=== PATIENT | female | born 1975 | race Two or more races ===

== ENCOUNTER → 2017-12-04 | Outpatient (CLI) | payer OTHER | END | disposition home or self-care (01) | LOC: SURG 14:11 | PROVIDERS: ATTEND Anesthesiology Pain Medicine | DX: M51.37 Other intervertebral disc degeneration, lumbosacral region (principal); Z90.49 Acquired absence of other specified parts of digestive tract | CPT/HCPCS: 99214 ==

== ENCOUNTER → 2018-03-05 | Outpatient (CLI) | payer OTHER ==
[~2018-03-05] MED LIST: ALBUTEROL SULFATE 2.5 MG/3 ML NEBU. NEB PRN; ATROPINE 0.5 MG/5 ML DISP.SYRIN. IV PRN; ATROPINE 0.5 MG/5 ML DISP.SYRIN. ONE; BUPIVACAINE MPF 0.25% 10 ML VIAL. ONE; CETI10TA22 PO; EPINEPHrine SYRINGE 1 MG/10 ML SYRINGE ONE; ESCITALOPRAM OX20 MG PO; FLUMAZENIL 0.5 MG/5 ML VIAL. IV ONE; GLUCAGON,HUMAN RECOMBINANT 1 MG KIT. ONE; IV RINGERS SOLUTION,LACTATED 1,000 ML IV ONE; IV RINGERS SOLUTION,LACTATED 1,000 ML IV SCH; LEVO125T5 PO; LIDOCAINE 1% PF 30 ML VIAL. ONE; MIDAZOLAM HCL PF 2 MG/2 ML VIAL. IV ONE; MIDAZOLAM HCL PF 2 MG/2 ML VIAL. ONE; MULT1TAB52 PO; NALOXONE 0.4 MG/ML VIAL. IV PRN; NALOXONE 0.4 MG/ML VIAL. ONE; ONDANSETRON PF 4 MG/2 ML VIAL. IV PRN; PROCHLORPERAZINE 10 MG/2 ML VIAL. IV PRN; TOPI100T42 PO; diphenhydrAMINE 50 MG/ML VIAL IV PRN; diphenhydrAMINE 50 MG/ML VIAL ONE; methylPREDNISolone ACETATE 40 MG/ML VIAL. ONE; oxyCODONE/APAP 5/325 1 TAB TABLET PO PRN
[2018-03-05 09:25] VITALS: BP 125/74
== END | disposition home or self-care (01) ==
LOC: SURG 07:24
PROVIDERS: ATTEND Anesthesiology Pain Medicine
DX: M47.816 Spondylosis without myelopathy or radiculopathy, lumbar region (principal); Z90.49 Acquired absence of other specified parts of digestive tract; Z90.710 Acquired absence of both cervix and uterus
CPT/HCPCS: 64635; 64636; 99152; 99153; J1030; J2001; J2250; J3010; J3490; J7120